=== PATIENT | male | born 1960 | race Caucasian/White ===

== ENCOUNTER 2017-06-01 18:12 | Emergency (ER) | payer MEDICARE, OTHER ==
[2017-06-01 18:22] VITALS: BP 132/78
[2017-06-01] MEDS ORDERED: BUPIVACAINE 0.5% PF 30 ML VIAL SUBQ STA (19:16)
[2017-06-01] MEDS ORDERED: TETANUS/DIPHTHERIA/PERTUSSIS 0.5 ML SYRINGE IM ONE ×2 (19:16→19:27)
[2017-06-01] MEDS ORDERED: ceFAZolin 1 GM VIAL IM STA (19:16)
[2017-06-01] MEDS ORDERED: BUPIVACAINE 0.5% PF 30 ML VIAL ONE (19:22)
[2017-06-01] MEDS ORDERED: ceFAZolin 1 GM VIAL ONE (19:27)
[2017-06-01] MEDS ORDERED: WATER FOR INJECTION,STERILE 10 ML ONE (19:28)
--- NOTE | 2017-06-01 19:39 | ED Physician Documentation ---
PD HPI UPPER EXT INJURY - Stated complaint Stated Complaint: L HAND PX/LAC - Chief complaint Chief Complaint: Laceration - History obtained from History obtained from: Patient, Family - History of Present Illness Location: Right, Hand (thumb) Where injury occurred: Street Timing - onset: How many hours ago (4) Timing - duration: Hours (4) Timing - details: Abrupt onset Pain level max: 6 Pain level now: 6 Improved by: Rest, Ice, Immobilization Worsened by: Moving, Palpating Associated symptoms: No: Weakness, Numbness, Tingling, Swelling Similar symptoms before: Has not had sx before Recently seen: Not recently seen - Additonal information Additional information: Crushed right thumb under a tire iron while changing a tire. [place] and he has driven home to be evaluated here. Patient is left- handed Review of Systems Skin: denies: Rash Musculoskeletal: denies: Neck pain, Back pain Neurologic: denies: Focal weakness, Numbness, Head injury PD PAST MEDICAL HISTORY - Past Medical History Cardiovascular: High cholesterol Respiratory: Sleep apnea, CPAP use, Other Endocrine/Autoimmune: None GI: None : None HEENT: None, Chronic hearing loss Psych: None Musculoskeletal: None, Osteoarthritis, Other Derm: None - Present Medications Home Medications: Ambulatory Orders Medication Instructions Recorded Confirmed Acetaminophen/Cod 300/30 [Tylenol 1 - 2 tab PO Q6H PRN 12/02/13 12/02/13 #3] Ibuprofen [Motrin] 1 tab PO Q8H PRN 12/02/13 12/02/13 Cephalexin [Keflex] 500 mg PO Q6H #28 capsule 06/01/17 Cyclobenzaprine [Flexeril] 10 mg PO TID PRN 06/01/17 06/01/17 - Allergies Allergies/Adverse Reactions: Allergies Allergy/AdvReac Type Severity Reaction Status Date / Time No Known Drug Allergies Allergy Verified 06/01/17 18:21 - Living Situation Living Situation: reports: With family Living Arrangement: reports: At home - Social History Does the pt have substance abuse?: No - Family History Family history: reports: Non contributory - Immunizations Immunizations are current?: No Immunizations: TDAP >10years/unknown PD ED PE NORMAL - Vitals Vital signs reviewed: Yes - General General: Alert and oriented X 3, No acute distress, Well developed/nourished - Derm Derm: Warm and dry - Extremities Extremities: Other (R hand - crush injury to the distal aspect of the R thumb. Subungual hematoma present. flap laceration 3cm curved, irregular over pad of thumb. o/w normal hand exam. NVI. No tendon injury) - Neuro Neuro: Alert and oriented X 3 Results - Vitals Vitals: Vital Signs - 24 hr 06/01/17 18:16 Temperature 36.5 C Heart Rate 84 Respiratory 17 Rate Blood Pressure 132/78 H O2 Saturation 97 Oxygen O2 Source Room air - Rads (name of study) R thumb xray Radiology: Prelim report reviewed, EMP read contemporaneously, See rad report ( Comminuted fracture distal first phalanx without joint involvement. ) Procedures - Laceration (location) R thumb Length in cm: 3 Wound type: Curved, Irregular, Into muscle, Clean Neurovascular status: Sensory intact Tendon involvement: Tendon intact Anesthesia: Marcaine 0.5% (digital block) Wound Preparation: Irrigated copiously NS (1L), Wound explored, To the base. No : FB identified, FB removed Skin layer closure: Nylon, Size #-0 - enter number (3 and 4) Other: Patient tolerated well, No complications, Neurovascular intact, Dressing applied, Tetanus booster given (tdap) Complexity: Simple PD MEDICAL DECISION MAKING - ED course Complexity details: reviewed results, re-evaluated patient, considered differential, d/w patient, d/w retail wireless sales consultant ED course: Patient is a 57-year-old male who presents to the emergency department after a crush injury to the distal tip of the right thumb. He is left-handed. Given Tdap and Ancef. Will place on Keflex for home. Laceration repaired. Wound was cleansed and bandaged. Finger cage applied as well. Neurovascularly intact. Has Percocet at home for pain. No evidence of tendon injury or nerve injury. Warnings of infection and instructions on wound care given at bedside. Also counseled on how to minimize scarring. Also discussed the case with orthopedics to ensure close follow-up. Patient counseled regarding signs and symptoms for which I believe and urgent re-evaluation would be necessary. Patient with good understanding of and agreement to plan and is comfortable going home at this time This document was made in part using voice recognition software. While efforts are made to proofread this document, sound alike and grammatical errors may occur. Departure - Departure Disposition: 01 Home, Self Care Clinical Impression: Subungual hematoma Fracture of thumb Qualifiers: Encounter type: initial encounter Fracture type: closed Phalanx: distal Fracture alignment: displaced Laterality: right Qualified Code(s): S62.521A - Displaced fracture of distal phalanx of right thumb, initial encounter for closed fracture Laceration of thumb Qualifiers: Encounter type: initial encounter Damage to nail status: without damage Foreign body presence: without foreign body Laterality: right Qualified Code(s) : S61.011A - Laceration without foreign body of right thumb without damage to nail, initial encounter Crushing injury of thumb, right Qualifiers: Encounter type: initial encounter Qualified Code(s): S67.01XA - Crushing injury of right thumb, initial encounter Condition: Good Instructions: ED Fx Finger Open Follow-Up: [facility] [Provider Group] (call for an appointment on Friday or Friday with Dr. Ulloa.) Prescriptions: Cephalexin [Keflex] 500 mg PO Q6H #28 capsule Comments: Return if you worsen. Take all antibiotics until gone. Keep the splint on until seen by orthopedics. Dr. Ulloa wants to see you on Friday or Friday. Stitches should be removed in 10-14 days. Discharge Date/Time: 06/01/17 20:16
--- NOTE | 2017-06-01 19:43 | XRAY Preliminary Report ---
Exam: XR FINGER(S) RT IMPRESSION: Comminuted fracture distal first phalanx without joint involvement. [facility] SITE ID: [id number]
--- NOTE | 2017-06-01 19:44 | XRAY Report ---
EXAM: RIGHT FIRST DIGIT RADIOGRAPHY EXAM DATE: 06/01/2017 06:35 PM. CLINICAL HISTORY: Trauma. COMPARISON: None. TECHNIQUE: 3 views. FINDINGS: Bones: Comminuted fracture involving the distal phalanx with no articular margin involvement. Joints: Normal. No subluxations. Soft Tissues: Normal. No soft tissue swelling. IMPRESSION: Comminuted fracture distal first phalanx without joint involvement. [facility] Referring Provider Line: [phone] SITE ID: [id number]
== END 2017-06-01 20:16 | disposition home or self-care (01) ==
LOC: ED 18:12
DX: S60.112A Contusion of left thumb with damage to nail, initial encounter (principal); S62.521A Displaced fracture of distal phalanx of right thumb, initial encounter for closed fracture; S67.01XA Crushing injury of right thumb, initial encounter; Y92.410 Unspecified street and highway as the place of occurrence of the external cause; Y93.89 Activity, other specified; W23.0XXA Caught, crushed, jammed, or pinched between moving objects, initial encounter; E78.00 Pure hypercholesterolemia, unspecified; Z23 Encounter for immunization
CPT/HCPCS: 12001; 73140; 90471; 96372; 99283

== ENCOUNTER 2022-02-18 11:37 | Outpatient (CLI) | payer MEDICARE, OTHER ==
--- NOTE | 2022-02-18 14:16 | CT Report ---
PROCEDURE: Low Dose Lung Cancer Screen INDICATIONS: CURRENT SMOKER TECHNIQUE: Noncontrast low-dose axial images were acquired from the pulmonary apices to the posterior costophren ic angles. Multiplanar MIP reformats were then reconstructed. For radiation dose reduction, the follo wing was used: automated exposure control, adjustment of mA and/or kV according to patient size. COMPARISON: None. FINDINGS: Image quality: Adequate given low-dose technique. Images are denoted as (series #/image #). Visualized thyroid: Unremarkable. Lymph nodes: No evidence of thoracic lymphadenopathy however evaluation for mediastinal and hilar niyah nopathy is limited in the absence of intravenous contrast. Vasculature: Ectasia of the ascending thoracic aorta measuring 4.6 cm, measured at the level of the r ight pulmonary artery. Heart: No pericardial effusion. Multivessel coronary artery calcifications. Lung parenchyma and pleura: Mild emphysema. Pulmonary nodules include: -Right upper lobe: 3 mm solid subpleural nodule anteriorly (4/144). No consolidation or pleural effusion. Airways: Centrally patent. Saber-sheath configuration of the trachea. Few foci of peripheral airways mucous plugging present. Chest wall/musculoskeletal: Multilevel degenerative change of the visualized spine. Remote appearing compression deformity of the L1 superior endplate, approximately one third vertebral body height loss . Visualized upper abdomen: Partially imaged at least 3.9 cm structure exophytic from the posterior lef t kidney, possibly a cyst but indeterminate. IMPRESSION: 1. Lung-RADS Category 2: Benign appearance or behavior. Recommendation: Continue annual screening wit h low-dose noncontrast chest CT in 12 months. 2. Ectasia of the ascending thoracic aorta measuring up to 4.6 cm. 3. Partially imaged at least 3.9 cm structure exophytic from the posterior left kidney, possibly a cy st but indeterminate. It is possible that the apparent intermediate density within this finding is ar tifactual related to low-dose technique of this screening CT. Renal ultrasound could be obtained to chitra duarte if this finding represents a cyst or solid mass. Reviewed by: Monroe Suarez MD on 02/18/2022 2:15 PM PDT Approved by: Monroe Suarez MD on 02/18/2022 2:15 PM PDT Station ID: [id number]
== END 2022-02-18 11:38 | disposition home or self-care (01) ==
LOC: DI 11:37
PROVIDERS: ATTEND Student in an Organized Health Care Education/Training Program
DX: Z12.2 Encounter for screening for malignant neoplasm of respiratory organs (principal); I77.810 Thoracic aortic ectasia; F17.210 Nicotine dependence, cigarettes, uncomplicated

== ENCOUNTER 2023-09-10 09:12 | Outpatient (CLI) | payer MEDICARE, OTHER ==
--- NOTE | 2023-09-10 15:26 | CT Report ---
PROCEDURE: Lung Cancer Screen INDICATIONS: SMOKER TECHNIQUE: A CT scan of the chest was performed. Intravenous contrast media was not administered. Images were re corded and evaluated at appropriate window settings. Reformats: axial MIP of the chest, coronal and s agittal. For radiation dose reduction, the following was used: automated exposure control, adjustment of mA and/or kV according to patient size. COMPARISON: 02/18/2022 FINDINGS: Image quality: Excellent. Prior cancer history: Unknown Lungs and pleura: No pleural effusions. No pneumothorax. Mild biapical paraseptal emphysematous navarrete ge. Calcified subpleural nodule in the right middle lobe anteriorly, . Central and peripheral ai rways are normal caliber without bronchial wall thickening or bronchiectasis. Mediastinum: Heart size is normal with mild coronary artery calcification . No pericardial effusion. Ascending aortic aneurysm measuring 4.5 cm in AP diameter.. No mediastinal adenopathy by size criteri a. No anterior or posterior mediastinal mass. Normal esophagus without hiatal hernia Chest wall and lower neck: Thyroid is unremarkable. No axillary or supraclavicular adenopathy by size . Bones: No suspicious bone lesion. Chronic L1 compression fracture. Upper Abdomen: Redemonstration of several indeterminant exophytic cystic lesions arising from each ki dney. Decompressed gallbladder. IMPRESSION: Lung RAD: 2 - Benign. Recommendation: Continue annual screening in 12 months. Non-Lung Significant Findings: Aortic Aneurysm. Stable compared to the prior exam. Redemonstrated bilateral renal cystic masses. Ultrasound or renal protocol CT or MR is recommended fo r further evaluation if not recently performed. Reviewed by: Leslie Wiggins MD on 09/10/2023 3:24 PM PST Approved by: Leslie Wiggins MD on 09/10/2023 3:24 PM PST Station ID: [id number]
== END 2023-09-10 09:13 | disposition home or self-care (01) ==
LOC: DI 09:12
PROVIDERS: ATTEND Student in an Organized Health Care Education/Training Program
DX: Z12.2 Encounter for screening for malignant neoplasm of respiratory organs (principal); F17.210 Nicotine dependence, cigarettes, uncomplicated; N28.1 Cyst of kidney, acquired; J43.9 Emphysema, unspecified; R91.1 Solitary pulmonary nodule; I71.21 Aneurysm of the ascending aorta, without rupture; I25.10 Atherosclerotic heart disease of native coronary artery without angina pectoris